=== PATIENT | male | born 1945 | race Native Hawaiian/Other Pacific Islander ===

== ENCOUNTER 2022-07-13 15:25 | Outpatient (CLI) | payer MEDICARE, SELFPAY ==
[2022-07-13 21:43] LABS: Sodium* 131 mmol/L (135-149)
[2022-07-13 21:44] LABS: Albumin* 4.2 g/dL (3.3-5.0); Potassium* 4.5 mmol/L (3.6-5.1)
[2022-07-13 21:47] LABS: Alanine Aminotransferase* 21 U/L (4-50); Alkaline Phosphatase* 51 U/L (40-150); Aspartate Amino Transferase* 36 U/L (12-35); Bilirubin Total* 0.8 mg/dL (0.1-1.5); Blood Urea Nitrogen* 13 mg/dL (7-30); Calcium* 9.4 mg/dL (8.4-10.6); Carbon Dioxide* 26 mmol/L (20-32); Creatinine* 0.9 mg/dL (0.5-1.5); Estimated Glomerular Filt Rate 89 ml/min; Glucose* 72 mg/dL (60-115); Total Protein* 6.9 g/dL (6.0-8.3)
[2022-07-13 22:00] LABS: Chloride* 96 mmol/L (96-114)
== END 2022-07-13 15:26 | disposition home or self-care (01) ==
LOC: FRMREF 15:39
PROVIDERS: Visit Provider Dermatology
DX: L20.9 Atopic dermatitis, unspecified (principal)
CPT/HCPCS: 80053

== ENCOUNTER 2022-08-10 10:52 | Outpatient (CLI) | payer MEDICARE, SELFPAY ==
[2022-08-10 21:33] LABS: Albumin* 4.3 g/dL (3.3-5.0); Chloride* 94 mmol/L (96-114); Sodium* 130 mmol/L (135-149)
[2022-08-10 21:36] LABS: Alanine Aminotransferase* 22 U/L (4-50); Alkaline Phosphatase* 49 U/L (40-150); Aspartate Amino Transferase* 33 U/L (12-35); Bilirubin Total* 0.5 mg/dL (0.1-1.5); Blood Urea Nitrogen* 7 mg/dL (7-30); Carbon Dioxide* 25 mmol/L (20-32); Creatinine* 0.7 mg/dL (0.5-1.5); Estimated Glomerular Filt Rate 95 ml/min; Glucose* 90 mg/dL (60-115)
[2022-08-10 21:37] LABS: Calcium* 8.3 mg/dL (8.4-10.6)
[2022-08-10 21:39] LABS: Potassium* 5.1 mmol/L (3.6-5.1)
== END 2022-08-10 10:53 | disposition home or self-care (01) ==
PROVIDERS: Visit Provider Dermatology
DX: L20.9 Atopic dermatitis, unspecified (principal); Z79.631 Long term (current) use of antimetabolite agent
CPT/HCPCS: 80053

== ENCOUNTER 2022-10-28 15:03 | Outpatient (CLI) | payer MEDICARE, SELFPAY ==
[2022-10-28 22:12] LABS: Chloride* 102 mmol/L (96-114); Potassium* 4.7 mmol/L (3.6-5.1); Sodium* 135 mmol/L (135-149)
[2022-10-28 22:14] LABS: Albumin* 4.1 g/dL (3.3-5.0)
[2022-10-28 22:15] LABS: Alanine Aminotransferase* 19 U/L (4-50); Alkaline Phosphatase* 71 U/L (40-150); Aspartate Amino Transferase* 25 U/L (12-35); Blood Urea Nitrogen* 20 mg/dL (7-30); Calcium* 9.6 mg/dL (8.4-10.6); Glucose* 117 mg/dL (60-115)
[2022-10-28 22:17] LABS: Carbon Dioxide* 24 mmol/L (20-32); Total Protein* 7.5 g/dL (6.0-8.3)
[2022-10-28 23:11] LABS: Creatinine* 0.9 mg/dL (0.5-1.5); Estimated Glomerular Filt Rate 89 ml/min
== END 2022-10-28 15:04 | disposition home or self-care (01) ==
LOC: FRMREF 15:03
PROVIDERS: Visit Provider Dermatology
DX: L30.9 Dermatitis, unspecified (principal)
CPT/HCPCS: 80053

== ENCOUNTER 2022-12-28 11:31 | Outpatient (CLI) | payer MEDICARE, SELFPAY | END 2022-12-28 11:32 | disposition home or self-care (01) | LOC: FRMREF 11:33 | PROVIDERS: Visit Provider Dermatology | DX: Z79.899 Other long term (current) drug therapy (principal) | CPT/HCPCS: 80076 ==

== ENCOUNTER 2023-03-29 11:24 | Outpatient (CLI) | payer MEDICARE, SELFPAY | END 2023-03-29 11:25 | disposition home or self-care (01) | LOC: FRMREF 11:26 | PROVIDERS: Visit Provider Dermatology | DX: L30.9 Dermatitis, unspecified (principal) | CPT/HCPCS: 80076 ==

== ENCOUNTER 2024-06-21 14:29 | Outpatient (REF) | payer MEDICARE, SELFPAY ==
[2024-06-21 15:50] LABS: Basophils Absolute Auto 0.02 K/uL (0.00-0.30); Basophils Percent Auto 0.3 % (0.0-3.0); Eosinophils Percent Auto 1.3 % (0.0-7.0); Hematocrit 34.6 % (37.0-53.0); Hemoglobin* 11.1 gm/dL (13.5-17.5); Immature Granulocytes Abs Auto 0.03 K/uL (0.00-0.30); Immature Granulocytes Pct Auto 0.4 %; Lymphocytes Absolute Auto 1.79 K/uL (0.90-2.90); Lymphocytes Percent Auto 24.1 % (20-44); Mean Corpuscular HGB Conc 32 gm/dL (32-36); Mean Corpuscular Hemoglobin 26 pg (26-34); Mean Corpuscular Volume 80 fL (80-100); Monocytes Percent Auto 8.9 % (0.0-11.0); Neutrophils Absolute Auto 4.84 K/uL (1.7-7.0); Platelet Count* 337 K/uL (140-440); RDW Coefficient of Variation % 14.4 % (11.5-15.5); Red Blood Count 4.34 m/uL (4.30-5.90); White Blood Count* 7.44 K/uL (4.50-11.00)
[2024-06-21 15:53] LABS: Slide Review Reflex No
[2024-06-21 16:38] LABS: Alanine Aminotransferase* 18 U/L (4-50); Aspartate Amino Transferase* 34 U/L (12-35); Cholesterol* 134 mg/dL (90-199); HDL Cholesterol* 65 mg/dL (>=40); LDL Cholesterol Calculated 54 mg/dL (<100); Triglycerides* 73 mg/dL (40-149)
== END 2024-06-21 14:30 | disposition home or self-care (01) ==
LOC: NPINS 14:29
PROVIDERS: Visit Provider Dermatology
DX: L20.89 Other atopic dermatitis (principal); Z79.899 Other long term (current) drug therapy; L30.4 Erythema intertrigo
CPT/HCPCS: 80061; 84450; 84460; 85025; 86480

== ENCOUNTER 2025-03-14 09:50 | Outpatient (CLI) | payer MEDICARE, SELFPAY ==
[2025-03-14 13:31] LABS: Basophils Absolute Auto 0.03 K/uL (0.00-0.30); Basophils Percent Auto 0.3 % (0.0-3.0); Eosinophils Absolute Auto 0.07 K/uL (0.00-0.50); Eosinophils Percent Auto 0.7 % (0.0-7.0); Hematocrit 37.1 % (37.0-53.0); Hemoglobin* 11.9 gm/dL (13.5-17.5); Immature Granulocytes Abs Auto 0.09 K/uL (0.00-0.30); Immature Granulocytes Pct Auto 0.9 %; Lymphocytes Percent Auto 17.9 % (20-44); Mean Corpuscular HGB Conc 32 gm/dL (32-36); Mean Corpuscular Hemoglobin 26 pg (26-34); Mean Corpuscular Volume 80 fL (80-100); Monocytes Percent Auto 7.1 % (0.0-11.0); Neutrophils Percent Auto 73.1 % (42.0-72.0); Platelet Count* 389 K/uL (140-440); RDW Coefficient of Variation % 14.2 % (11.5-15.5); Red Blood Count 4.65 m/uL (4.30-5.90); White Blood Count* 9.95 K/uL (4.50-11.00)
[2025-03-14 13:46] LABS: Alanine Aminotransferase* 19 U/L (4-50); Aspartate Amino Transferase* 37 U/L (12-35); Cholesterol* 120 mg/dL (90-199); Triglycerides* 73 mg/dL (40-149)
[2025-03-14 13:47] LABS: HDL Cholesterol* 65 mg/dL (>=40); LDL Cholesterol Calculated 40 mg/dL (<100)
[2025-03-14 13:54] LABS: Slide Review Reflex No
[2025-03-16 07:59] LABS: QuantiFERON Mitogen minus NIL 9.89 IU/mL; QuantiFERON NIL 0.11 IU/mL; Quantiferon TB Gold Plus Negative (Negative)
== END 2025-03-14 09:51 | disposition home or self-care (01) ==
LOC: NPINS 09:52
PROVIDERS: Visit Provider Dermatology
DX: L70.8 Other acne (principal); L20.89 Other atopic dermatitis; Z79.899 Other long term (current) drug therapy; Z13.6 Encounter for screening for cardiovascular disorders
CPT/HCPCS: 80061; 84450; 84460; 85025; 86480